=== PATIENT | female | born 1965 ===

== ENCOUNTER 2017-04-16 09:58 | Day surgery (SDC) | payer SELFPAY ==
[2017-02-19 14:48] VITALS: BMI 25.9
[2017-04-16] MEDS ORDERED: Lactated Ringer's 1,000 ML IV ONE ×2 (10:35→12:28)
[2017-04-16 10:41] VITALS: RESP 18
[2017-04-16 10:57] LABS: BASO # 0.1 K/uL (0.0-0.2); BASO % 0.8 % (0.0-2.0); EOS % 0.7 % (0.0-4.0); HEMATOCRIT 41.4 % (34.0-47.0); LYMPH # 2.4 K/uL (1.0-4.3); LYMPH % 34.4 % (20.0-40.0); MEAN CELL VOLUME 90.8 fl (81.0-99.0); MEAN CORPUSCULAR HEMOGLOBIN 30.1 pg (27.0-31.0); MEAN CORPUSCULAR HGB CONC 33.2 g/dL (33.0-37.0); MEAN PLATELET VOLUME 10.1 fl (7.2-11.7); MONO # 0.5 K/uL (0.0-0.8); MONO % 6.8 % (0.0-10.0); NEUT # 4.1 K/uL (1.8-7.0); NEUT % 57.3 % (50.0-75.0); NRBC % 0.1 % (0.0-0.0); RED CELL DISTRIBUTION WIDTH 13.3 % (11.5-14.5); WHITE BLOOD COUNT 7.1 K/uL (4.8-10.8)
[2017-04-16 11:27] LABS: BLOOD UREA NITROGEN 14 mg/dl (7-17); CALCIUM 9.6 mg/dL (8.4-10.2); CARBON DIOXIDE 30 mmol/L (22-30); GFR AFRICAN-AMERICAN > 60; GLUCOSE,RANDOM 105 mg/dL (65-105); POTASSIUM 4.4 MMOL/L (3.6-5.0); SODIUM 143 mmol/l (132-148)
[2017-04-16 11:29] LABS: CHLORIDE 104 mmol/L (98-107)
[2017-04-16] MEDS ORDERED: Lidocaine 4% (Laryng-O-Jet) Kit MM ONE (11:38)
[2017-04-16] MEDS ORDERED: Propofol 10 mg/ml Inj (20 ML) ONE (11:38)
[2017-04-16] MEDS ORDERED: Succinylcholine 200 mg/10 ml Inj IV ONE (11:38)
[2017-04-16] MEDS ORDERED: Phenylephrine 10 mg/ml Inj ONE (11:39)
[2017-04-16] MEDS ORDERED: Dexamethasone 4 mg/1 ml ONE (11:41)
--- NOTE | 2017-04-16 11:55 | CP.SDSHP ---
Same Day Surgery H & P - History Proposed Procedure: R inguinal hernia repair Pre-Op Diagnosis: Recurrent R inguinal hernia - Previous Medical/Surgical History Misc: Pain: 2.Mild Pain Previous Surgical History: Abdominoplasty, breast augmentation , - Allergies Allergies: Allergies No Known Allergies Allergy (Unverified 04/16/17 11:23) - Physical Exam General Appearance: NAD Vital Signs: Vital Signs 04/16/17 04/16/17 10:39 10:48 Temperature 98.5 F Pulse Rate 53 L 53 L Respiratory 18 Rate Blood Pressure 109/70 O2 Sat by Pulse 99 Oximetry Mental Status: Alert & Oriented x3 Neuro: WNL Heart: WNL Lungs: WNL GI: WNL - {Optional Preform as Required} Breast: WNL Abdomen: Other (Low abd, inguinal area R TTP.) Integument: WNL - Impression Impression: R reccurent Inguinal hernia Pt. Evaluated Today:Candidate for Anesthesia & Procedure: Yes - Date & Time Date: 04/16/17 Time: 11:57 Short Stay Discharge - Short Stay Discharge Admitting Diagnosis/Reason for Visit: K40.91 Disposition: HOME/ ROUTINE Referrals: Susie John MD [Primary Care Provider] - Follow-up: Follow up with Dr. Bond in 1-2 weeks Ok to take shower tomorrow. Keep steristrips on. No heavy lifting for 1 month Take pain med as needed. Instructions: Open Herniorrhaphy (DC)
[2017-04-16] MEDS ORDERED: Lidocaine 1% Inj (20ml) ONE (12:16)
[2017-04-16] MEDS ORDERED: Bupivacaine 0.5% Inj(30mL) ONE (12:16)
[2017-04-16] MEDS ORDERED: Midazolam 2 MG/2 ML VIAL ONE (12:28)
[2017-04-16] MEDS ORDERED: Lactated Ringer's 500 ML IV ONE (13:00)
[2017-04-16] MEDS ORDERED: ePHEDrine 50 mg/ml Inj ONE (13:06)
[2017-04-16] MEDS ORDERED: Oxycodone/Acetaminophen 5/325 mg Tab PO PRN (13:40)
[2017-04-16] MEDS ORDERED: Lactated Ringer's 1,000 ML IV SCH (13:40)
--- NOTE | 2017-04-16 13:40 | PCM.SURG1 ---
Surgeon's Initial Post Op Note - Surgeon's Notes Surgeon: Dr. pro Gasket Inspector: Dr. perez, Dr. Cowart Type of Anesthesia: General Endo Anesthesia Administered By: Pan Pre-Operative Diagnosis: Right inguinal hernia, Recurrent Operative Findings: see operative report Post-Operative Diagnosis: same Operation Performed: Right Inguinal hernia repair w/ mesh Specimen/Specimens Removed: round ligament Estimated Blood Loss: EBL {In ML}: 5 Blood Products Given: N/A Drains Used: No Drains Post-Op Condition: Good Date of Surgery/Procedure: 04/16/17 Time of Surgery/Procedure: 13:40
[2017-04-16] MEDS: HYDROmorphone 0.5 mg/0.5 ml ISec IVP PRN ×2 (13:50→14:20)
[2017-04-16] MEDS ORDERED: HYDROmorphone 0.5 mg/0.5 ml ISec ONE (13:57)
[2017-04-16] MEDS ORDERED: Oxycodone/Acetaminophen 5/325 mg Tab PO ONE (14:00)
[2017-04-16 17:11] VITALS: BP 99/71; PULSE 66; TEMP 97.5; O2SAT 98
--- NOTE | 2017-04-18 01:42 | OP ---
PROCEDURE DATE: 04/16/2017 SURGEON: Dr. Bond. ASSISTANTS: Dr. Osman and Dr. Cowart. ANESTHESIA: General; Dr. Perla. PREOPERATIVE DIAGNOSIS: Right inguinal hernia. POSTOPERATIVE DIAGNOSIS: Right inguinal hernia. PROCEDURE: Right inguinal hernia repair with mesh. ESTIMATED BLOOD LOSS FOR THE PROCEDURE: 5 mL. DESCRIPTION OF OPERATION: With the patient in the supine position under adequate general anesthesia, the right groin was prepped and draped in the usual sterile manner. The patient is status post of abdominoplasty, but no definite hernia scar was noted in the right groin. The incision was taken down through the subcutaneous tissue with some thickening noted of the Camper's fascial layer and the external oblique was identified. The external oblique was cleared from the internal inguinal ring to the external inguinal ring and incised and opened. The round ligament was identified and dissected off the inguinal floor and passed over the pubic tubercle. The round ligament was mildly dilated with no significant identifiable hernia sac. The round ligament was suture ligated and divided at the level of the internal inguinal ring and also both to the pubis with the intervening section after the ligation was carried with a 0-Vicryl suture. The inguinal floor was then examined, there was noted to be a 1 cm enlargement of the internal inguinal ring as well as some mild protrusion in the inguinal floor beneath the transversalis fascia. The internal ring area was noted to be not large enough to place a plug, so the transversalis was imbricated down to the shelving edge of the inguinal ligament using interrupted sutures of 0-Vicryl and a last piece of polypropylene mesh was then trimmed to approximate the inguinal floor and sutured circumferentially to the reinforce of the floor, sutured superiorly to the area of the transversalis fascia inferiorly to the shelving edge of the inguinal ligament with sutures taken immediately at the pubic tubercle and laterally lateral to the internal inguinal ring. The external oblique was then re-approximated over the mesh using running suture of 0-Vicryl. Subcutaneous tissues were re-approximated with 3-0 Vicryl and closure was performed with running subcuticular suture of 4-0 Monocryl and Steri-Strips. Dry sterile dressings were applied. The patient tolerated the procedure well and transferred to the recovery room in stable condition. Fay Bond MD [facility] # [id number]
--- NOTE | 2017-04-18 09:33 | CARD ---
APPROVED REPORT EKG Measurement Heart [id number] <Conclusion> Sinus bradycardia Otherwise normal ECG
== END 2017-04-16 17:25 | disposition home or self-care (01) ==
LOC: H.OPSURG 09:58
PROVIDERS: ATTEND Specialist
DX: K40.91 Unilateral inguinal hernia, without obstruction or gangrene, recurrent (principal)
CPT/HCPCS: 36415; 49505; 80048; 82948; 85025; 88302; 93005; C1781; J0330; J0690; J1100; J1170; J1885; J2001; J2250; J2370; J2405; J2704; J2765; J3010; J7030; J7120

== ENCOUNTER 2018-01-26 09:23 | Day surgery (SDC) | payer SELFPAY ==
[2017-07-02 22:03] VITALS: BMI 25.9
[2018-01-26] MEDS ORDERED: Lactated Ringer's 500 ML IV ONE (12:59)
[2018-01-26] MEDS ORDERED: Midazolam 2 MG/2 ML VIAL ONE (14:17)
[2018-01-26] MEDS ORDERED: Propofol 10 mg/ml Inj (20 ML) ONE (14:17)
[2018-01-26 15:17] VITALS: BP 101/65; PULSE 71; RESP 14; TEMP 97.2; O2SAT 98
== END 2018-01-26 15:28 | disposition home or self-care (01) ==
LOC: H.ENDO 09:23
PROVIDERS: ATTEND Internal Medicine Gastroenterology
DX: Z12.11 Encounter for screening for malignant neoplasm of colon (principal); E11.9 Type 2 diabetes mellitus without complications; K64.1 Second degree hemorrhoids
CPT/HCPCS: 45378; 82948; J2001; J2250; J2704; J7120